=== PATIENT | male | born 1945 | race Caucasian/White ===

== ENCOUNTER 2020-03-18 16:10 | Inpatient (IN) | payer BC, MEDICARE ==
[~2020-03-18] VITALS: Ht 185.4 cm; Wt 59.5 kg
[~2020-03-18 16:10] MED LIST: TRIA25CA; [UNRECOGNIZED DRUG - OTHER]
[2020-03-18] MEDS ORDERED: PANTOPRAZOLE 40 MG TAB PO ONE (16:30)
[2020-03-18] MEDS ORDERED: methylPREDNISolone SOD SUCC 125 MG/2 ML VL IV ONE (16:30)
[2020-03-18 17:14] LABS: Basophils # (auto) 0 10 ^3/uL (0-0.2); Basophils % (auto) 0.2 % (0.0-2.0); Eosinophils # (auto) 0 10 ^3/uL (0-0.8); Eosinophils % (auto) 0.2 % (0.0-7.0); Hematocrit 40.6 % (41.0-53.0); Hemoglobin 13.4 g/dL (13.5-17.5); Lymphocytes # (auto) 0.6 10 ^3/uL (0.4-5.4); Lymphocytes % (auto) 7.8 % (10.0-50.0); Monocytes # (auto) 0.8 10 ^3/uL (0-1.3); Monocytes % (auto) 9.9 % (0.0-12.0); Neutrophils # (auto) 6.6 10 ^3/uL (1.6-8.6); Neutrophils % (auto) 81.9 % (37.0-80.0); Platelet Count (auto) 399 10^3/uL (140-450); Red Blood Cells 4.46 10^6/uL (4.5-5.90); Red Cell Distribution Width 15.1 % (11.8-14.3); White Blood Cell 8.1 10^3/uL (4.4-10.8)
[2020-03-18 17:27] LABS: Albumin 2.8 g/dL (3.4-5.0); Anion Gap 4 (5-15); Blood Urea Nitrogen 67 mg/dL (7-18); Calcium 7.9 mg/dL (8.5-10.1); Carbon Dioxide 22 mmol/L (21-32); Chloride 108 mmol/L (98-107); Glucose 111 mg/dL (74-106); Potassium 3.6 mmol/L (3.5-5.1); Sodium 134 mmol/L (136-145)
[2020-03-18 17:32] LABS: Alanine Aminotransferase 13 U/L (16-61); Alkaline Phosphatase 64 U/L (45-117); Aspartate Aminotransferase 11 U/L (15-37); BUN/Creatinine Ratio 22.6; Bilirubin, Total 0.4 mg/dL (0.2-1.0); GFR African American 27 mL/min; GFR Non-African American 22 mL/min; Total Protein 6.7 g/dL (6.4-8.2)
[2020-03-18] MEDS ORDERED: NITROGLYCERIN 0.4 MG SL TAB SL PRN ×2 (18:30→21:00)
[2020-03-18] MEDS ORDERED: MORPHINE SULF INJ 2 MG/ML SYRINGE 1ML IV PRN ×3 (18:30→21:00)
[2020-03-18 20:07] VITALS: BP 112/54
--- NOTE | 2020-03-18 20:07 | NUR ---
MS admit from ER [facility] admitted to tele/MS; no SBAR received. Patient oriented by JUHI SIDDIQUI, primary RN, to unit, room, bed, and unit policies regarding patient care and visiting hours. Patient weighed by bedscale and encouraged to call if he needs anything. Three times during admission interview RN instructed pt to call for assist if he desires to get up as he now has IV fluids infusing and will need assist with amb with the IV pole; Pt VU each time and agreement with POC. All questions and concerns addressed, patient verbalized understanding. Bed in low position and nurse call light to pt's R side. HOB in semi-Rowley's position.
[2020-03-18] MEDS ORDERED: ONDANSETRON HCL 4 MG/2 ML VIAL IV PRN (21:00)
[2020-03-18] MEDS ORDERED: DOCUSATE SOD 100 MG CAP PO PRN (21:00)
[2020-03-18] MEDS ORDERED: LORazepam 0.5 MG TAB PO PRN (21:00)
[2020-03-18] MEDS ORDERED: ALUM & MAG HYDROX-SIMETH LIQ(MAALOX) 30 ML PO PRN (21:00)
[2020-03-18] MEDS ORDERED: HYDROcodone-ACET 5/325MG TAB PO PRN (21:00)
[2020-03-18] MEDS ORDERED: hydrALAZINE HCL 20 MG/ML VL IV PRN (21:15)
[2020-03-18] MEDS: SODIUM CHLORIDE 0.9% 1,000 ML IV SCH (21:15)
[2020-03-18 21:19] LABS: Cholesterol 121 mg/dL (< 200); HDL Cholesterol 38 mg/dL (40-59); LDL Cholesterol 62 mg/dL (< 100); Triglycerides 170 mg/dL (< 150)
[2020-03-18 21:48] VITALS: BP 112/54
--- NOTE | 2020-03-18 22:43 | NUR ---
Respiratory note: PT SEEN AND ASSESSED FOR PRN MED NEB TX AT 2243. TX NOT INDICATED AT THIS TIME. PT DISPLAYING NO SIGNS OF DISTRESS AT THIS TIME, HE WAS CURRENTLY SLEEPING WHEN ENTERING THE ROOM. HR 77 RR 18 SP02 92% ON ROOM AIR.
[2020-03-18 22:46] VITALS: BP 91/41
[2020-03-18] MEDS: AZITHROMYCIN 500MG/ 250ML 250 ML IV SCH (23:32)
[2020-03-18] MEDS: methylPREDNISolone SOD SUCC 40 MG/ML VL IV SCH (23:37)
[2020-03-18] MEDS: FUROSEMIDE 20 MG/2 ML VIAL IV SCH (23:40)
[2020-03-18] MEDS: ENOXAPARIN SOD 30 MG/0.3 ML SYRINGE SC SCH (23:42)
[2020-03-18] MEDS: FAMOTIDINE 20 MG TAB PO SCH (23:42)
[2020-03-19] MEDS: SODIUM CHLORIDE 0.9% 1,000 ML IV SCH ×4 (02:15→20:25)
[2020-03-19] MEDS ORDERED: OME20T PO (03:44)
[2020-03-19] MEDS ORDERED: CAPT12.52 PO (03:44)
[2020-03-19] MEDS ORDERED: ASPI-543 PO (03:44)
[2020-03-19] MEDS ORDERED: AML5T PO (03:44)
[2020-03-19 05:50] VITALS: BP 104/55
[2020-03-19] MEDS: methylPREDNISolone SOD SUCC 40 MG/ML VL IV SCH (06:00)
[2020-03-19] MEDS: FUROSEMIDE 20 MG/2 ML VIAL IV SCH (06:00)
[2020-03-19 06:33] LABS: Basophils # (auto) 0 10 ^3/uL (0-0.2); Basophils % (auto) 0.2 % (0.0-2.0); Eosinophils # (auto) 0 10 ^3/uL (0-0.8); Hematocrit 36.6 % (41.0-53.0); Hemoglobin 12.1 g/dL (13.5-17.5); Lymphocytes # (auto) 0.2 10 ^3/uL (0.4-5.4); Lymphocytes % (auto) 5.9 % (10.0-50.0); Mean Corpuscular Hemoglobin 30.4 pg (28.0-32.0); Mean Corpuscular Hgb Conc. 33.2 g/dL (32.0-36.0); Mean Corpuscular Volume 91.5 fL (80.0-100.0); Monocytes # (auto) 0.1 10 ^3/uL (0-1.3); Monocytes % (auto) 2.6 % (0.0-12.0); Neutrophils # (auto) 3.7 10 ^3/uL (1.6-8.6); Neutrophils % (auto) 91.3 % (37.0-80.0); Platelet Count (auto) 305 10^3/uL (140-450); Red Blood Cells 3.99 10^6/uL (4.5-5.90); Red Cell Distribution Width 14.7 % (11.8-14.3); White Blood Cell 4.1 10^3/uL (4.4-10.8)
[2020-03-19 06:35] LABS: Albumin 2.5 g/dL (3.4-5.0); Calcium 7.7 mg/dL (8.5-10.1); Magnesium 2.9 mg/dL (1.6-2.6); Potassium 4.5 mmol/L (3.5-5.1)
[2020-03-19 06:39] LABS: INR 1.22 (0.9-1.15); Partial Thromboplastin Time 34.2 sec (23.64-32.05)
[2020-03-19 06:40] LABS: Bilirubin, Total 0.3 mg/dL (0.2-1.0); Phosphorus 4.8 mg/dL (2.5-4.90)
--- NOTE | 2020-03-19 07:20 | NUR ---
Assumed care Patient in bed AOx4. Patient denies any pain at this time, no s/s of distress noted. Patient updated on POC and to call for assistance as needed. Fall precautions in place. Will continue care.
[2020-03-19] MEDS: Glucerna Carbsteady SHAKE Vanilla 8oz PO SCH ×3 (08:00→18:00)
--- NOTE | 2020-03-19 08:19 | NUR ---
Respiratory note: PT ASSESSED FOR PRN MEDNEB. PT FOUND ON ROOM AIR WITH SPO2 94 % PT WAS IN NO DISTRESS AT THIS TIME. TREATMENT NOT INDICATED AT THIS TIME. INFORMED PT TO HAVE RT PAGED IF BECOMES SOB.
[2020-03-19 09:00] VITALS: BP 104/55
[2020-03-19] MEDS ORDERED: FLORASTOR (S. BOULARDII) 250 MG CAP PO SCH (10:00)
[2020-03-19] MEDS: AZITHROMYCIN 500MG/ 250ML 250 ML IV SCH (11:01)
[2020-03-19] MEDS: FAMOTIDINE 20 MG TAB PO SCH (11:01)
[2020-03-19 13:00] VITALS: BP 104/54
--- NOTE | 2020-03-19 14:50 | NUR ---
Nutrition Assessment/consult Notes Please see attached link for complete assessment Est energy needs BW 83 [id number] kcal (25-30 kcal/kg BW) Est protein needs 66-83 g (0.8-1.0g/kg BW elev RFT). Will reassess prn. Addendum: 03/19/20 at [address] Amended: Links added.
[2020-03-19 15:49] LABS: Potassium 3.7 mmol/L (3.5-5.1)
[2020-03-19 17:00] VITALS: BP 110/57
[2020-03-19] MEDS: IPRATROPIUM BROM 0.5 MG/2.5ML INH SOL NEB PRN ×2 (18:26→22:10)
[2020-03-19] MEDS: ALBUTEROL SULF 2.5 MG/0.5ML(0.5%) NEB SOLN NEB PRN ×2 (18:26→22:11)
[2020-03-19] MEDS: ACETYLCYSTEINE 10 %(100MG/ML) SOL 4ML NEB SCH ×2 (18:27→22:11)
[2020-03-19] MEDS: ENOXAPARIN SOD 30 MG/0.3 ML SYRINGE SC SCH (18:59)
--- NOTE | 2020-03-19 19:40 | NUR ---
Opening Shift Note Assumed care of patient, awake and alert and talkative. No S/S of SOB or pain. Pt expressing frustration with being inpatient and feeling that one MD is not forthcoming as pt "did not come here for [my lungs], and that is what he says my problem is." This RN explained that pt's breath sounds were greatly diminished night before though all knew he was presenting for hx of diarrhea and wt loss. Pt finally admitted he is "breathing a lot better." RN also explained pt's need for continued fluids and abx tx. Pt refusing fluids but will for abx to be given tomorrow a.m. He states he will be going home early tomorrow morning; RN explained rationale for cont med for his benefit and to prevent resistant organism developing. Instructed on POC and to call for assist PRN, will continue to monitor for changes Q1hr and PRN. Bed in low position. Pt has call light within reach. Pt walking freq.
--- NOTE | 2020-03-19 21:25 | NUR ---
Pt amb out to nurses' station to show this RN that his hep lock site has dark blood at insertion site and on dressing; stated for nurse to come remove it. Pt insisting he will not take any more medications via IV for this admission. Hep loc removed in entirety; pressure dressing applied to site.
[2020-03-19 21:43] VITALS: BP 112/53
[2020-03-19 22:39] LABS: Urine Bacteria FEW /hpf (None Seen); Urine Blood Negative /uL (Negative); Urine Mucus FEW (None Seen); Urine Specific Gravity 1.021 (1.001-1.035); Urine WBC 3 /hpf (0 - 3)
[2020-03-19 22:53] LABS: Protein, Urine 58.6 mg/dL (0.0-11.9)
[2020-03-19 22:54] LABS: Alcohol, Urine < 3.0 mg/dL (0-5); Amphetamine Screen, Urine NEGATIVE (NEGATIVE); Barbiturate Scree,Urine NEGATIVE (NEGATIVE); Benzodiazephine Screen, Urine NEGATIVE (NEGATIVE); Cannabinoid Screen, Urine NEGATIVE (NEGATIVE); Cocaine Screen, Urine NEGATIVE (NEGATIVE); Phencyclidine Screen, Urine NEGATIVE (NEGATIVE)
[2020-03-19 23:05] LABS: Opiate Scree,Urine POSITIVE (NEGATIVE)
[2020-03-20] MEDS: ACETYLCYSTEINE 10 %(100MG/ML) SOL 4ML NEB SCH ×2 (02:00→09:14)
--- NOTE | 2020-03-20 02:17 | NUR ---
Respiratory note: AT BEDSIDE FOR SCHEDULED MED NEB TX, PT SLEEPING HEAVY AT THIS TIME. SPO2 96% ON ROOM AIR, HR 62. PT PRESENTING NO RESPIRATORY DISTRESS AT THIS TIME. WILL CONTINUE TO MONITOR.
[2020-03-20] MEDS: SODIUM CHLORIDE 0.9% 1,000 ML IV SCH (03:54)
[2020-03-20 04:40] VITALS: BP 100/59
[2020-03-20 06:05] LABS: Basophils # (auto) 0 10 ^3/uL (0-0.2); Basophils % (auto) 0.1 % (0.0-2.0); Eosinophils # (auto) 0 10 ^3/uL (0-0.8); Hematocrit 34.3 % (41.0-53.0); Hemoglobin 11.6 g/dL (13.5-17.5); Lymphocytes # (auto) 0.6 10 ^3/uL (0.4-5.4); Lymphocytes % (auto) 7.2 % (10.0-50.0); Mean Corpuscular Hemoglobin 30.5 pg (28.0-32.0); Mean Corpuscular Hgb Conc. 33.8 g/dL (32.0-36.0); Mean Corpuscular Volume 90.4 fL (80.0-100.0); Monocytes # (auto) 0.6 10 ^3/uL (0-1.3); Monocytes % (auto) 7.9 % (0.0-12.0); Neutrophils # (auto) 6.5 10 ^3/uL (1.6-8.6); Neutrophils % (auto) 84.8 % (37.0-80.0); Platelet Count (auto) 277 10^3/uL (140-450); Red Blood Cells 3.79 10^6/uL (4.5-5.90); Red Cell Distribution Width 14.3 % (11.8-14.3); White Blood Cell 7.7 10^3/uL (4.4-10.8)
[2020-03-20 06:26] LABS: BUN/Creatinine Ratio 33.1; Calcium 7.5 mg/dL (8.5-10.1); Potassium 3.6 mmol/L (3.5-5.1)
--- NOTE | 2020-03-20 07:00 | NUR ---
Opening Shift Note Received report on the patient. Awake lying in bed. Patient shows no signs of distress at this time. Discussed plan of care with the patient. Patient is ready to go home and requesting to be discharged. Bed in lowest position, side rails up x2, and the call light is within reach. Will continue to monitor.
[2020-03-20] MEDS: Glucerna Carbsteady SHAKE Vanilla 8oz PO SCH (08:53)
[2020-03-20 09:00] VITALS: BP 116/77
--- NOTE | 2020-03-20 09:13 | NUR ---
Paged Dr Suzy Davis regarding the patient's discharge. Awaiting a return call.
[2020-03-20] MEDS: ALBUTEROL SULF 2.5 MG/0.5ML(0.5%) NEB SOLN NEB PRN (09:14)
[2020-03-20] MEDS: IPRATROPIUM BROM 0.5 MG/2.5ML INH SOL NEB PRN (09:14)
[2020-03-20] MEDS ORDERED: predniSONE 20 MG TAB PO SCH (10:00)
--- NOTE | 2020-03-20 10:00 | NUR ---
Respiratory note: PT REFUSED Q4 MEDNEB
--- NOTE | 2020-03-20 10:42 | NUR ---
Assessment room 277a Patient is a 74-year old male who is alert and oriented. Prior to admission patient lived home with his Deidra and functioned independently. Patient informed me he can care for his own ADLs. Patient stated he does not need any medical equipment now. Advised patient there is a Social Service consult for home health safety evaluation and physical therapy. Patient stated he does not need home health service. Per patient he will return home to his prior living arrangements post discharge and his will transport him home. Informed patient he has a right to participate in all discharge planning. Patient verbalized understanding and agreed to discharge plan home. Addendum: 03/20/20 at 1042 by BOB HERBERT Amended: Links added.
--- NOTE | 2020-03-20 10:44 | NUR ---
Patient refused all meds and wanted to AMA. Charge nurse Ilene notified.
== END 2020-03-20 10:44 | disposition left against medical advice (07) | DRG 682 ==
LOC: ER 16:10 → OVERFLOW 16:11 → WEST WING 20:07
PROVIDERS: ADMIT Hospitalist; ATTEND Internal Medicine
DX: N17.9 Acute kidney failure, unspecified (principal); J96.20 Acute and chronic respiratory failure, unspecified whether with hypoxia or hypercapnia; E44.0 Moderate protein-calorie malnutrition; Z68.1 Body mass index [BMI] 19.9 or less, adult; J98.11 Atelectasis; F17.210 Nicotine dependence, cigarettes, uncomplicated; G89.29 Other chronic pain; E86.0 Dehydration; D72.810 Lymphocytopenia; J43.9 Emphysema, unspecified; I13.10 Hypertensive heart and chronic kidney disease without heart failure, with stage 1 through stage 4 chronic kidney disease, or unspecified chronic kidney disease; K52.9 Noninfective gastroenteritis and colitis, unspecified; N18.9 Chronic kidney disease, unspecified; Z53.29 Procedure and treatment not carried out because of patient's decision for other reasons; E86.9 Volume depletion, unspecified; N28.1 Cyst of kidney, acquired; N40.0 Benign prostatic hyperplasia without lower urinary tract symptoms; R62.7 Adult failure to thrive; Z80.1 Family history of malignant neoplasm of trachea, bronchus and lung; Z85.118 Personal history of other malignant neoplasm of bronchus and lung; Z83.3 Family history of diabetes mellitus; Z71.6 Tobacco abuse counseling
CPT/HCPCS: 36415; 71046; 76775; 80048; 80051; 80053; 80061; 80307; 81001; 82570; 83036; 83735; 84100; 84156; 84166; 84484; 85025; 85610; 85730; 87040; 87086; 87449; 93005; 94640; G0378

== ENCOUNTER 2023-10-30 15:22 | Inpatient (IN) | payer OTHER, MEDICARE ==
[~2023-10-30] VITALS: Ht 185.4 cm; Wt 67.6 kg
[~2023-10-30 15:22] MED LIST changes: +AML5T PO; +ASPI-543 PO; +CAPT12.52 PO; +OME20T PO
[2023-10-30 16:21] LABS: Hematocrit 42.5 % (41.0-53.0); Hemoglobin 13.8 g/dL (13.5-17.5); Mean Corpuscular Hemoglobin 30.8 pg (28.0-32.0); Mean Corpuscular Hgb Conc. 32.5 g/dL (32.0-36.0); Mean Corpuscular Volume 94.9 fL (80.0-100.0); Red Blood Cells 4.48 10^6/uL (4.5-5.90); Red Cell Distribution Width 15.2 % (11.8-14.3); White Blood Cell 13.5 10^3/uL (4.4-10.8)
[2023-10-30 16:22] LABS: Basophils % (manual) 0 (0.0-2.0); Blast Cells 0; Eosinophils % (manual) 0 (0-7); Metamyelocytes % 0; Myelocytes % 0; Promyelocytes % 0; Reactive Lymphocytes 0
[2023-10-30 16:39] LABS: Alanine Aminotransferase 28 U/L (7-40); Albumin 3.3 g/dL (3.2-4.8); Alkaline Phosphatase 72 U/L (46-116); Anion Gap 6 (5-15); Aspartate Aminotransferase 25 U/L (13-40); Bilirubin, Total 0.3 mg/dL (0.2-1.0); Blood Urea Nitrogen 39 mg/dL (9-23); Carbon Dioxide 29 mmol/L (20-30); Chloride 103 mmol/L (98-107); Glucose 91 mg/dL (74-106); Potassium 5.3 mmol/L (3.5-5.1); Sodium 138 mmol/L (136-145); Total Protein 5.7 g/dL (5.7-8.2)
[2023-10-30] MEDS ORDERED: ASPirin 325 MG TAB PO ONE (16:45)
[2023-10-30] MEDS ORDERED: FUROSEMIDE 100 MG/10ML VIAL IV ONE (16:45)
[2023-10-30 16:46] LABS: Lactic Acid w/Reflex 2.3 mmol/L (0.4-2.0)
[2023-10-30 16:48] LABS: Band Neutrophils % (manual) 9; Lymphocytes % (manual) 5 (10.0-50.0); Monocytes % (manual) 4 (0-12); Platelet Estimate Adequate
[2023-10-30 16:54] LABS: INR 1.21 (0.9-1.15); Partial Thromboplastin Time 29.9 SEC (24.5-34.5); Prothrombin Time 12.5 sec (9.3-11.8)
[2023-10-30] MEDS ORDERED: METO-289 PO (18:13)
[2023-10-30] MEDS ORDERED: ACETAMINOPHEN 325 MG TAB PO PRN (18:15)
[2023-10-30] MEDS ORDERED: NITROGLYCERIN 0.4 MG SL TAB SL PRN (18:15)
[2023-10-30] MEDS ORDERED: DOCUSATE SOD 100 MG CAP PO PRN (18:15)
[2023-10-30] MEDS ORDERED: IPRATROPIUM BROM 0.5 MG/2.5ML INH SOL NEB PRN (18:15)
[2023-10-30] MEDS ORDERED: ALBUTEROL SULF 2.5 MG/0.5ML(0.5%) NEB SOLN NEB PRN (18:15)
[2023-10-30] MEDS ORDERED: MORPHINE SULFATE INJ 2 MG/ml SYRG IV PRN (18:15)
[2023-10-30] MEDS ORDERED: ONDANSETRON HCL 4 MG/2 ML VIAL IV PRN (18:15)
[2023-10-30] MEDS ORDERED: AZITHROMYCIN 500MG/ 250ML 250 ML IV ONE (18:30)
[2023-10-30] MEDS ORDERED: guaiFENesin 200 MG/10 ML UD PO PRN (18:30)
[2023-10-30] MEDS ORDERED: cefTRIAXone 1GM/50ML D5W 50 ML IV ONE (18:30)
[2023-10-30] MEDS: HYDROcodone-ACET 5/325MG TAB PO PRN (19:11)
[2023-10-30 19:31] VITALS: BP 112/64; PULSE 94; RESP 20; TEMP 99; O2SAT 97
[2023-10-30 19:32] VITALS: PULSE 104; RESP 20; O2SAT 98
[2023-10-30 20:03] VITALS: O2SAT 91
[2023-10-30 20:29] VITALS: O2SAT 91
[2023-10-30 21:25] LABS: Urine Bacteria MANY /hpf (None Seen); Urine Blood Negative /uL (Negative); Urine Clarity HAZY (Clear); Urine Color Yellow (Yellow); Urine Hyaline Cast FEW /lpf (0 - 2); Urine Mucus FEW (None Seen); Urine Protein, UAD TRACE (Negative); Urine Specific Gravity 1.016 (1.001-1.035); Urine WBC 48 /hpf (0 - 3); Urine pH 5.5 (5.0-8.0)
[2023-10-30 21:37] LABS: Amphetamine Screen, Urine Neg (NEGATIVE); Barbiturate Scree,Urine Neg (NEGATIVE); Benzodiazephine Screen, Urine Neg (NEGATIVE); Cannabinoid Screen, Urine Neg (NEGATIVE); Cocaine Screen, Urine Neg (NEGATIVE); Opiate Scree,Urine Neg (NEGATIVE); Phencyclidine Screen, Urine Neg (NEGATIVE)
[2023-10-30 21:50] VITALS: BP 112/42
[2023-10-30] MEDS: ATORVASTATIN 20 MG TAB PO SCH (22:11)
[2023-10-30 23:16] VITALS: PULSE 67; RESP 18; TEMP 98.1; O2SAT 95
[2023-10-31] VITALS (14 sets, daily range): BP systolic 98–108; BP diastolic 55–67; PULSE 100–112; RESP 16–20; TEMP 97.7–99.2; O2SAT 91–100
[2023-10-31 06:32] LABS: Basophils # (auto) 0.1 10 ^3/uL (0-0.2); Basophils % (auto) 0.3 % (0.0-2.0); Eosinophils # (auto) 0 10 ^3/uL (0-0.8); Eosinophils % (auto) 0.1 % (0.0-7.0); Hematocrit 39.4 % (41.0-53.0); Hemoglobin 12.9 g/dL (13.5-17.5); Lymphocytes # (auto) 0.5 10 ^3/uL (0.4-5.4); Lymphocytes % (auto) 3.2 % (10.0-50.0); Mean Corpuscular Hemoglobin 30.9 pg (28.0-32.0); Mean Corpuscular Hgb Conc. 32.8 g/dL (32.0-36.0); Mean Corpuscular Volume 94.4 fL (80.0-100.0); Monocytes # (auto) 1.1 10 ^3/uL (0-1.3); Monocytes % (auto) 6.2 % (0.0-12.0); Neutrophils # (auto) 15.3 10 ^3/uL (1.6-8.6); Neutrophils % (auto) 90.2 % (37.0-80.0); Nucleated Red Blood Cells % 0.1 %; Red Blood Cells 4.18 10^6/uL (4.5-5.90)
[2023-10-31] MEDS ORDERED: OMEP1CAP70 PO (06:41)
[2023-10-31] MEDS ORDERED: FUR20T PO (06:41)
[2023-10-31 06:48] LABS: Alanine Aminotransferase 23 U/L (7-40); Albumin 3.2 g/dL (3.2-4.8); Alkaline Phosphatase 59 U/L (46-116); Anion Gap 8 (5-15); Aspartate Aminotransferase 20 U/L (13-40); BUN/Creatinine Ratio 13.1 (10.0-20.0); Calcium 8.4 mg/dL (8.5-10.1); Carbon Dioxide 29 mmol/L (20-30); Chloride 102 mmol/L (98-107); Cholesterol 98 mg/dL (< 200); Glucose 101 mg/dL (74-106); HDL Cholesterol 35 mg/dL (40-59); LDL Cholesterol 52 mg/dL (< 100); Potassium 4.9 mmol/L (3.5-5.1); Sodium 139 mmol/L (136-145); Triglycerides 54 mg/dL (< 150)
[2023-10-31 06:49] LABS: Bilirubin, Total 0.7 mg/dL (0.2-1.0); Total Protein 5.3 g/dL (5.7-8.2)
[2023-10-31] MEDS: ALBUTEROL SULF 2.5 MG/0.5ML(0.5%) NEB SOLN NEB SCH ×3 (06:56→19:17)
[2023-10-31] MEDS: IPRATROPIUM BROM 0.5 MG/2.5ML INH SOL NEB SCH ×3 (06:56→19:17)
[2023-10-31 07:03] LABS: Blood Urea Nitrogen 28 mg/dL (9-23)
[2023-10-31] MEDS: cefTRIAXone 1GM/50ML D5W 50 ML IV SCH (09:06)
[2023-10-31] MEDS: METOPROLOL SUCCINATE XL 50 MG TAB PO SCH (10:00)
[2023-10-31] MEDS ORDERED: ENOXAPARIN SOD 40 MG/0.4 ML SYRINGE SC SCH (10:00)
[2023-10-31] MEDS: FUROSEMIDE 40 MG/4 ML VIAL IV SCH (10:00)
[2023-10-31] MEDS: amLODIPine BESYLATE 5 MG TAB PO SCH (10:00)
[2023-10-31] MEDS: AZITHROMYCIN 500MG/ 250ML 250 ML IV SCH (12:00)
[2023-10-31] MEDS: PANTOPRAZOLE 40 MG TAB PO SCH (12:03)
[2023-10-31] MEDS: ASPirin-EC 81 mg tab PO SCH (12:03)
[2023-10-31 15:49] LABS: COVID19 ANTIGEN SOFIA FIA NEGATIVE (NEGATIVE); Rapid Influenza A Negative (Negative); Rapid Influenza B Negative (Negative)
[2023-10-31] MEDS: ATORVASTATIN 20 MG TAB PO SCH (21:27)
[2023-10-31] MEDS: ENOXAPARIN SOD 80 MG/0.8ML SYRINGE SC SCH (21:28)
[2023-11-01] VITALS (12 sets, daily range): BP systolic 97–115; BP diastolic 53–65; PULSE 62–119; RESP 16–18; TEMP 98–98.9; O2SAT 90–100
[2023-11-01] MEDS: ALBUTEROL SULF 2.5 MG/0.5ML(0.5%) NEB SOLN NEB SCH ×3 (07:27→19:29)
[2023-11-01] MEDS: IPRATROPIUM BROM 0.5 MG/2.5ML INH SOL NEB SCH ×3 (07:27→19:29)
[2023-11-01] MEDS: cefTRIAXone 1GM/50ML D5W 50 ML IV SCH (09:00)
[2023-11-01] MEDS: amLODIPine BESYLATE 5 MG TAB PO SCH (09:25)
[2023-11-01] MEDS: METOPROLOL SUCCINATE XL 50 MG TAB PO SCH (09:25)
[2023-11-01] MEDS: PANTOPRAZOLE 40 MG TAB PO SCH (09:38)
[2023-11-01] MEDS: AZITHROMYCIN 500MG/ 250ML 250 ML IV SCH (09:38)
[2023-11-01] MEDS: ASPirin-EC 81 mg tab PO SCH (09:38)
[2023-11-01] MEDS: FUROSEMIDE 40 MG/4 ML VIAL IV SCH (09:43)
[2023-11-01] MEDS: ENOXAPARIN SOD 80 MG/0.8ML SYRINGE SC SCH (09:43)
[2023-11-01] MEDS: AMIODARONE HCL 200 MG TAB PO SCH (18:21)
[2023-11-01] MEDS: ATORVASTATIN 20 MG TAB PO SCH (21:43)
[2023-11-01] MEDS ORDERED: ENOXAPARIN SOD 80 MG/0.8ML SYRINGE SC SCH (22:00)
[2023-11-01] MEDS: HYDROcodone-ACET 5/325MG TAB PO PRN (22:51)
[2023-11-02] VITALS (10 sets, daily range): BP systolic 90–116; BP diastolic 50–67; PULSE 64–124; RESP 16–18; TEMP 98–98.9; O2SAT 90–99
[2023-11-02] MEDS ORDERED: EMPAGLIFLOZIN 10 MG TAB PO SCH (07:00)
[2023-11-02] MEDS: ALBUTEROL SULF 2.5 MG/0.5ML(0.5%) NEB SOLN NEB SCH ×2 (07:39→13:15)
[2023-11-02] MEDS: IPRATROPIUM BROM 0.5 MG/2.5ML INH SOL NEB SCH ×2 (07:39→13:14)
[2023-11-02] MEDS: ASPirin-EC 81 mg tab PO SCH (08:49)
[2023-11-02] MEDS: AMIODARONE HCL 200 MG TAB PO SCH (08:50)
[2023-11-02] MEDS: amLODIPine BESYLATE 5 MG TAB PO SCH (08:50)
[2023-11-02] MEDS: PANTOPRAZOLE 40 MG TAB PO SCH (08:51)
[2023-11-02] MEDS: METOPROLOL SUCCINATE XL 50 MG TAB PO SCH (08:51)
[2023-11-02] MEDS: FUROSEMIDE 40 MG/4 ML VIAL IV SCH (08:51)
[2023-11-02] MEDS: cefTRIAXone 1GM/50ML D5W 50 ML IV SCH (08:52)
[2023-11-02] MEDS: AZITHROMYCIN 500MG/ 250ML 250 ML IV SCH (08:52)
[2023-11-02] MEDS ORDERED: CEFEPIME 2GM/50ML NS 50 ML IV ONE (14:45)
[2023-11-02] MEDS ORDERED: VANCOMYCIN PER PHARMACY 0 MG IV SCH (14:45)
[2023-11-02] MEDS ORDERED: VANCOMYCIN 1GM/200ML 200 ML IV ONE (15:00)
[2023-11-02] MEDS ORDERED: CEFEPIME 2GM/50ML NS 50 ML IV SCH (22:00)
[2023-11-02] MEDS ORDERED: ATORVASTATIN 20 MG TAB PO SCH (22:00)
[2023-11-03] MEDS ORDERED: METOPROLOL SUCCINATE XL 50 MG TAB PO SCH (10:00)
== END 2023-11-02 19:52 | disposition left against medical advice (07) | DRG 871 ==
LOC: ER 15:22 → TELE 18:08 → TELE-WESTW 21:50
PROVIDERS: ADMIT Family Medicine; ATTEND Internal Medicine
DX: A41.01 Sepsis due to Methicillin susceptible Staphylococcus aureus (principal); I21.4 Non-ST elevation (NSTEMI) myocardial infarction; J96.00 Acute respiratory failure, unspecified whether with hypoxia or hypercapnia; I50.23 Acute on chronic systolic (congestive) heart failure; I13.0 Hypertensive heart and chronic kidney disease with heart failure and stage 1 through stage 4 chronic kidney disease, or unspecified chronic kidney disease; N17.9 Acute kidney failure, unspecified; J44.1 Chronic obstructive pulmonary disease with (acute) exacerbation; I47.19 Other supraventricular tachycardia; I48.91 Unspecified atrial fibrillation; Z20.822 Contact with and (suspected) exposure to COVID-19; J43.9 Emphysema, unspecified; F17.210 Nicotine dependence, cigarettes, uncomplicated; Z53.29 Procedure and treatment not carried out because of patient's decision for other reasons; K21.9 Gastro-esophageal reflux disease without esophagitis; E78.00 Pure hypercholesterolemia, unspecified; L08.9 Local infection of the skin and subcutaneous tissue, unspecified; I73.9 Peripheral vascular disease, unspecified; N18.32 Chronic kidney disease, stage 3b; Z91.041 Radiographic dye allergy status; Z91.199 Patient's noncompliance with other medical treatment and regimen due to unspecified reason; Z83.3 Family history of diabetes mellitus; Z80.1 Family history of malignant neoplasm of trachea, bronchus and lung
CPT/HCPCS: 36415; 71045; 78582; 80053; 80061; 80307; 81001; 83605; 83735; 83880; 84443; 84484; 85007; 85025; 85027; 85379; 85610; 85730; 87040; 87077; 87086; 87147; 87186; 87205; 87426; 87804; 93005; 93306; 93925; 93970; 94640; 99291; G0378; J0692